=== PATIENT | female | born 1970 | race Two or more races ===

== ENCOUNTER → 2025-01-28 | Outpatient (CLI) | payer BC, SELFPAY ==
--- NOTE | 2025-01-28 07:30 | XR_ITS ---
Examination: Breast ultrasound complete, bilateral Date and time of exam: 04/30/2025 0733 hours INDICATIONS: Breast sonography July 30, 2024 right breast 7:00 nodule 6 x 5 mm Technique: Real-time grayscale ultrasonographic imaging bilateral breasts, including all 4 quadrants as well as nipple retroareolar and axillary regions. Findings: Sonographic images right breast 10:00 cyst 13 x 17 mm 10:00 cyst 27 x 40 mm No solid nodules Sonographic images left breast 11:00 cyst 23 x 17 mm 4:00 circumscribed nodule 7 x 6 mm IMPRESSION: BI-RADS Category 3: Probably benign findings One additional 6 month left breast sonogram follow-up is needed to document stability of 4:00 nodule left breast
== END | disposition home or self-care (01) ==
LOC: CDIM 07:18
PROVIDERS: PCP Nurse Practitioner Family; Referring Provider Nurse Practitioner Family; Visit Provider Nurse Practitioner Family
DX: N63.23 Unspecified lump in the left breast, lower outer quadrant (principal)
CPT/HCPCS: 76641

== ENCOUNTER → 2025-07-01 | Outpatient (CLI) | payer BC, SELFPAY ==
--- NOTE | 2025-07-01 15:15 | XR_ITS ---
Examination: Screening digital mammography, bilateral Computer aided detection 3-D breast Tomosynthesis, bilateral Date and time of exam: July 01, 2025, 1513 hours, compared to mammograms dating to 05/22/2024 Indication: Screening Technique: Nonmagnified MLO, CC views of the breasts to been obtained, reconstructed from 3-D Tomosynthesis images. R2 computer aided detection program utilized for evaluation of suspicious masses and/or abnormal calcifications. 3-D Tomosynthesis images obtained. Findings: The breasts are heterogeneously dense, which may obscure small masses 10:00 circumscribed mass right breast likely corresponding to 10:00 cyst 40 mm Breast sonogram 04/30/2025 12:00 circumscribed mass left breast, 25 mm, which may correspond to 11:00 cyst 23 mm on left breast sonogram January 28, 2025 Benign calcifications Stable nodular asymmetry upper right breast MLO view, 14 mm Impression: BI-RADS Category 0: Incomplete: Need additional imaging evaluation Recommend repeat bilateral breast sonography to correlate current mammographic masses with the ultrasound examinations.
== END | disposition home or self-care (01) ==
LOC: CDIM 14:55
PROVIDERS: Referring Provider Obstetrics & Gynecology; Visit Provider Obstetrics & Gynecology
DX: Z12.31 Encounter for screening mammogram for malignant neoplasm of breast (principal); R92.8 Other abnormal and inconclusive findings on diagnostic imaging of breast; N63.25 Unspecified lump in the left breast, overlapping quadrants; N63.11 Unspecified lump in the right breast, upper outer quadrant
CPT/HCPCS: 77063; 77067

== ENCOUNTER → 2025-09-02 | Outpatient (CLI) | payer BC, SELFPAY ==
--- NOTE | 2025-09-02 13:00 | XR_ITS ---
Examination: Breast ultrasound complete, bilateral Date and time of exam: September 02, 2025, 1310 hours INDICATIONS: Left breast sonogram 04/30/2025 4:00 nodule 7 x 6 mm Technique: Real-time grayscale ultrasonographic imaging bilateral breasts, including all 4 quadrants as well as nipple retroareolar and axillary regions. Findings: Sonographic images right breast 6:00 cyst 25 x 20 mm 10:00 cyst 40 x 34 mm No solid nodules Sonographic images left breast 12:00 cyst 22 x 20 mm 10:00 cyst 8 x 6 mm 3:00 scar formation versus mass 10 x 6 mm IMPRESSION: BI-RADS Category 3: Probably benign findings Recommend 1 additional 6-month left breast sonogram follow-up to document stability of 2:00 nodule versus scar formation described above
== END | disposition home or self-care (01) ==
LOC: CDIM 12:33
PROVIDERS: Referring Provider Nurse Practitioner Family; Visit Provider Nurse Practitioner Family
DX: N63.21 Unspecified lump in the left breast, upper outer quadrant (principal)
CPT/HCPCS: 76641